=== PATIENT | female | born 1955 | race Two or more races ===

== ENCOUNTER 2022-01-14 12:46 | Outpatient (CLI) | payer OTHER | END 2022-01-14 12:57 | disposition home or self-care (01) | LOC: RAD 12:46 | PROVIDERS: ATTEND Internal Medicine Cardiovascular Disease | DX: M12.9 Arthropathy, unspecified (principal) ==

== ENCOUNTER 2022-01-28 12:43 | Outpatient (CLI) | payer OTHER | END 2022-01-28 12:44 | disposition home or self-care (01) | LOC: NUCLEAR 12:43 | PROVIDERS: ATTEND Internal Medicine Cardiovascular Disease | DX: M81.0 Age-related osteoporosis without current pathological fracture (principal); E55.9 Vitamin D deficiency, unspecified; Z91.018 Allergy to other foods ==

== ENCOUNTER 2022-02-01 10:45 | Outpatient (CLI) | payer OTHER | END 2022-02-01 11:03 | disposition home or self-care (01) | LOC: TOM 10:45 | PROVIDERS: ATTEND Internal Medicine Cardiovascular Disease | DX: M12.9 Arthropathy, unspecified (principal); M46.47 Discitis, unspecified, lumbosacral region; N63.11 Unspecified lump in the right breast, upper outer quadrant ==

== ENCOUNTER 2022-09-29 12:47 | Outpatient (CLI) | payer OTHER | END 2022-09-29 12:54 | disposition home or self-care (01) | LOC: RAD 12:47 | PROVIDERS: ATTEND Internal Medicine Cardiovascular Disease | DX: M46.47 Discitis, unspecified, lumbosacral region (principal) ==

== ENCOUNTER 2023-08-29 17:33 | Emergency (ER) | payer OTHER ==
[~2023-08-29] VITALS: Ht 160 cm; Wt 36.3 kg
[2023-08-29] MEDS ORDERED: ZOLOFT25 MG (18:16)
== END 2023-08-29 21:41 | disposition home or self-care (01) ==
LOC: ER 17:34
DX: R42 Dizziness and giddiness (principal); F32.89 Other specified depressive episodes

== ENCOUNTER 2024-03-19 13:25 | Outpatient (CLI) | payer OTHER ==
[~2024-03-19 13:25] MED LIST: ZOLOFT25 MG
== END 2024-03-19 13:27 | disposition home or self-care (01) ==
LOC: NUCLEAR 13:25
PROVIDERS: ATTEND Internal Medicine Cardiovascular Disease
DX: M81.0 Age-related osteoporosis without current pathological fracture (principal); E55.9 Vitamin D deficiency, unspecified